=== PATIENT | male | born 1975 | race American Indian/Alaskan Native ===

== ENCOUNTER 2017-12-11 12:38 | Emergency (ER) | payer SELFPAY ==
[2017-12-11 13:10] VITALS: BP 142/88
--- NOTE | 2017-12-11 13:20 | Emergency Department Report ---
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 He felt a pop. He said he had some trouble flexing and extending his foot but he has been able to ambulate and bear weight on the heel. He took some Aleve for his discomfort with some relief. - ROS Review of Systems: Positive for right ankle and/or Achilles pain Negative for any obvious deformity, rash, fever - Exam Vital Signs: Vital Signs 12/11/17 12:55 Temperature 99.8 F H Pulse Rate 79 Blood Pressure 142/88 O2 Sat by Pulse 99 Oximetry Physical Exam: Patient has some tenderness to palpation to the top of the Achilles and/or bottom of the calf muscles on the right side. He does not have any significant tenderness along the main portion of the Achilles tendon. There is some decreased flexion and/or extension but he is able to move it some. Pedal pulses intact. MSE screening note: Focused history and physical exam performed. Due to findings the following was ordered: Patient with an x-ray of the right ankle. He will most likely need a splint and crutches and orthopedic referral. ED Disposition for MSE Condition: Stable
--- NOTE | 2017-12-11 14:35 | XRay Report ---
FINAL REPORT EXAM: XR ANKLE 3+V RT HISTORY: right ankle pain TECHNIQUE: 3 views of the right ankle PRIORS: None. FINDINGS: There is no radiographic evidence of definite acute fracture or dislocation. No evidence of osseous lesion. Joint spaces are maintained. There is no evidence of significant degenerative arthrosis. IMPRESSION: No acute skeletal pathology
--- NOTE | 2017-12-11 15:15 | Emergency Department Report ---
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 He felt a pop. He said he had some trouble flexing and extending his foot but he has been able to ambulate and bear weight on the heel. He took some Aleve for his discomfort with some relief. ED Past Medical Hx - Past Medical History Previous Medical History?: No - Surgical History Past Surgical History?: No - Social History Smoking Status: Current Every Day Smoker Substance Use Type: None - Medications Home Medications: Home Medications Medication Instructions Recorded Confirmed Last Taken Type HYDROcodone/APAP 5-325 [[place] 1 each PO Q6HR PRN #10 tablet 12/11/17 Unknown Rx 5/325] ED Review of Systems ROS: Stated complaint: RIGHT LEG PAIN Other details as noted in HPI Comment: All other systems reviewed and negative Constitutional: denies: chills, fever Eyes: denies: eye pain, eye discharge, vision change ENT: denies: ear pain, throat pain Respiratory: denies: cough, shortness of breath, wheezing Cardiovascular: denies: chest pain, palpitations Gastrointestinal: denies: abdominal pain, nausea, diarrhea Genitourinary: denies: urgency, dysuria Musculoskeletal: arthralgia, myalgia Skin: denies: rash, lesions Neurological: denies: headache, weakness, paresthesias Physical Exam - Physical Exam Vital Signs: Vital Signs 12/11/17 12:55 Temperature 99.8 F H Pulse Rate 79 Blood Pressure 142/88 O2 Sat by Pulse 99 Oximetry Physical Exam: GENERAL: The patient is well-developed well-nourished. HENT: Normocephalic. Atraumatic. Patient has moist mucous membranes. EYES: Extraocular motions are intact. NECK: Supple. Trachea is midline. CHEST/LUNGS: Clear to auscultation. There is no respiratory distress noted. HEART/CARDIOVASCULAR: Regular. There is no tachycardia. There is no murmur. ABDOMEN: There is no abdominal distention. SKIN: Mild nonpitting swelling to the posterior right ankle. Skin is warm and dry. NEURO: The patient is awake, alert, and oriented. The patient is cooperative. The patient has no focal neurologic deficits. The patient has normal speech. MUSCULOSKELETAL: There is some tenderness to palpation to the superior portion of the right Achilles and the inferior portion of the calf. There is decreased plantar flexion of the right foot secondary to pain. +2 over 4 dorsalis pedis pulse to the affected right foot ED Course Vital Signs 12/11/17 12:55 Temperature 99.8 F H Pulse Rate 79 Blood Pressure 142/88 O2 Sat by Pulse 99 Oximetry ED Medical Decision Making - Radiology Data Radiology results: image reviewed interpreted by me: X-ray of the right ankle does not show any fracture, dislocation or any other acute process. - Medical Decision Making Patient presents with pain to the posterior right ankle around the superior portion of the Achilles tendon and the bottom of the calf after jumping up and down and feeling a pop. He does have some movement of the right foot and there is not significant swelling around the Achilles so there is a low suspicion that there is a complete rupture. However he could have a partial tear or sprain/strain. X-ray did not show any fracture, dislocation or any acute process. He was placed in a splint and placed on crutches to be nonweightbearing until follow-up with an orthopedist and multiple referrals were given. - Differential Diagnosis Achilles tendon rupture, sprain, strain, fracture Critical Care Time: No Critical care attestation.: If time is entered above; I have spent that time in minutes in the direct care of this critically ill patient, excluding procedure time. ED Disposition Clinical Impression: Strain of right Achilles tendon Qualifiers: Encounter type: initial encounter Qualified Code(s): S86.011A - Strain of right Achilles tendon, initial encounter Disposition: - TO HOME OR SELFCARE Is pt being admited?: No Condition: Stable Additional Instructions: You were seen today for pain to your right Achilles tendon and lower calf. The x-ray did not show any fracture or dislocation but if there is a Achilles tendon rupture it will not show up on x-ray and you may need an MRI in the near future. Please follow up with an orthopedist and I have given you a referral for 2 different orthopedic groups. I would remain in the splint and on crutches with nonweightbearing to that right lower extremity until follow-up with the orthopedist. Return to the emergency Department with any worsening of your symptoms or any acute distress. You have been prescribed a medication that is sedating and therefore should not be taken prior to driving, working, and responsible for children and in no way should be mixed with alcohol of any quantity. Prescriptions: HYDROcodone/APAP 5-325 [[place] 5/325] 1 each PO Q6HR PRN #10 tablet PRN Reason: Pain Referrals: PRIMARY CARE, [Primary Care Provider] - 3-5 Days NONA HICKEY MD [Staff Physician] - 2-3 Days [facility] [Provider Group] - 2-3 Days Time of Disposition: 15:28
== END 2017-12-11 15:51 | disposition home or self-care (01) ==
LOC: ED 12:38
DX: S86.011A Strain of right Achilles tendon, initial encounter (principal); F17.200 Nicotine dependence, unspecified, uncomplicated; X58.XXXA Exposure to other specified factors, initial encounter; Y93.39 Activity, other involving climbing, rappelling and jumping off; Y99.8 Other external cause status; Y92.89 Other specified places as the place of occurrence of the external cause